=== PATIENT | male | born 1975 | race Caucasian/White ===

== ENCOUNTER 2016-08-11 07:27 | Emergency (ER) | payer BC, OTHER ==
[~2016-08-11] VITALS: Ht 180.3 cm; Wt 77.1 kg
[2016-08-11 07:30] VITALS: TEMP 36.4; Ht 180.3 cm; Wt 77.1 kg
[2016-08-11] MEDS ORDERED: SODIUM CHLORIDE 0.9% 1000ML 1,000 ML IV STA (07:34)
[2016-08-11] MEDS ORDERED: KETOROLAC TROMETHAMINE 30 MG/ML VIAL IV STA (07:34)
[2016-08-11] MEDS ORDERED: ONDANSETRON INJ 2 MG/ML 2 ML VIAL IV STA (07:34)
[2016-08-11] MEDS ORDERED: FLUO10CA15 PO (07:47)
[2016-08-11] MEDS ORDERED: CLON0.5T3 PO (07:47)
[2016-08-11 08:03] LABS: BASO % 0.3 %; BASO ABS # 0.02 K/uL (0-0.2); COMPLETE YES; EOS % 3.2 %; HEMATOCRIT 43.7 % (42-52); IG% 0.3 %; LYMPH % 31.5 %; MEAN CELL VOLUME 95.4 fL (80-100); MEAN CORPUSCULAR HEMOGLOBIN 32.5 pg (25-34); MEAN CORPUSCULAR HGB CONC 34.1 g/dl (32-36); MEAN PLATELET VOLUME 10.3 fL (7.4-10.4); NEUT % 56.7 %; PLATELET COUNT 212 K/uL (130-400); RED BLOOD COUNT 4.58 M/uL (4.7-6.1); WHITE BLOOD COUNT 6.03 K/uL (4.8-10.8)
[2016-08-11 08:25] LABS: ALKALINE PHOSPHATASE 82 U/L (45-117); ALT/SGPT 40 U/L (12-78); AST/SGOT 29 U/L (15-37); BLOOD UREA NITROGEN 18 mg/dl (7-18); BUN/CREATININE RATIO 16.4 (10-20); CALCIUM 9.3 mg/dl (8.5-10.1); CARBON DIOXIDE 25 mmol/L (21-32); CHLORIDE 111 mmol/L (98-107); GLUCOSE 105 mg/dl (70-99); POTASSIUM 4.1 mmol/L (3.5-5.1); SODIUM 143 mmol/L (136-145)
[2016-08-11] MEDS ORDERED: PROM25TA9 PO (08:49)
[2016-08-11 09:55] VITALS: BP 136/83; PULSE 52; O2SAT 99
--- NOTE | 2016-08-11 16:03 | EMERGENCY ROOM VISIT NOTE ---
History First contact with patient: 07:32 Chief Complaint: DIARRHEA Stated Complaint: DIARRHEA Nursing Triage Summary: pt here with n/v/d x 2 days. pt states able to eat in morning but sx get worse throughout day. denies any med hx History of Present Illness The patient is a 41 year old male who presents to the Emergency Room with complaints of nausea, vomiting and diarrhea for the past 2 days. The patient reports that his symptoms are worse in the morning, and improves throughout the day. He is able to eat over the evening without any significant discomfort. The patient reports that he ate at [employer] 2 days ago, and had symptoms within a few hours after eating. He reports that the diarrhea is green and watery in consistency with some solids. He reports that the vomit looks the same. He denies any blood in the vomitus or diarrhea. The patient also reports feeling dehydrated. 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 He has had a headache, dry skin overall feeling weak. He denies any recent foreign travel or drinking from contaminated water sources. He rates his overall discomfort a 6 out of 10. He denies any known sick contacts. Review of Systems HEENT: Denies visual problems, hearing loss, tinnitus. Denies difficulty swallowing or oral lesions. PULMONARY: Denies cough, shortness of breath, sputum production or hemoptysis. CARDIOVASCULAR: Denies chest pain, palpitations, dyspnea on exertion, orthopnea or peripheral edema. GASTROINTESTINAL: See history of present illness. GENITOURINARY: Denies dysuria, frequency, urgency or nocturia. NEUROLOGIC: Denies history of epilepsy, CVA, TIA or chronic headaches. MUSCULOSKELETAL: Denies history of joint tenderness/swelling. SKIN: Denies rashes or lesions. PSYCHIATRIC: Denies history of depression or mental illness. ENDOCRINE: Denies history of diabetes or thyroid disorders. Past Medical/Surgical History Medical Problems: (1) Abdominal pain Surgical Problems: (1) History of ankle surgery Family History No pertinent family history Social History Smoking Status: Current Every Day Smoker Alcohol Use: occasionally Marital Status: single, in relationship Housing Status: lives with family Occupation Status: employed Current/Historical Medications Scheduled Clonazepam (Klonopin), 0.5 MG PO TID Scheduled PRN Fluoxetine Hcl (Pmdd) (Prozac), Unknown Dose PO DAILY PRN for . Promethazine Hcl (Phenergan), 25 MG PO Q6H PRN for Nausea Allergies Coded Allergies: Codeine (Unverified Allergy, Unknown, NA, 08/11/16) Physical Exam Vital Signs Date Time Temp Pulse Resp B/P (MAP) Pulse Ox O2 Delivery O2 Flow Rate FiO2 08/11/16 09:55 52 16 136/83 99 08/11/16 07:30 36.4 62 20 119/75 99 Room Air Physical Exam CONSTITUTIONAL: Healthy and well nourished. Alert and oriented X 3 with positive affect. Does not appear in any acute distress, nor does he appear acutely or toxic. HEENT: Normocephalic, atraumatic. Pupils equal, round and reactive. Nares are clear. Sclerae icterus or conjunctival injection. OROPHARYNX: Mucous membranes are dry. No tonsillar hypertrophy or exudates. NECK: Full active range of motion without discomfort. RESPIRATORY: Clear to auscultation bilaterally with no wheezing, crackles, rhonchi or stridor. CARDIOVASCULAR: Regular rate and rhythm with no murmurs, rubs or gallops. GASTROINTESTINAL: Bowel sounds present in all quadrants. Patient has no focal findings, but does have mild generalized discomfort to palpation. No hepatosplenomegaly. McBurney's point tenderness, Rovsing sign, heeltap or psoas /obturator sign. Negative CVA tenderness. MUSCULOSKELETAL: Full range of motion of all joints without discomfort. INTEGUMENTARY: No rash or other significant dermatologic conditions noted. HEMATOLOGIC: No ecchymosis or petechiae. NEUROLOGIC: No focal neurologic deficits noted. Medical Decision & Procedures Laboratory Results 08/11/16 07:50 Red Blood Count 4.58, Mean Corpuscular Volume 95.4, Mean Corpuscular Hemoglobin 32.5, Mean Corpuscular Hemoglobin Concent 34.1, Mean Platelet Volume 10.3, Neutrophils (%) (Auto) 56.7, Lymphocytes (%) (Auto) 31.5, Monocytes (%) (Auto) 8.0, Eosinophils (%) (Auto) 3.2, Basophils (%) (Auto) 0.3, Neutrophils # (Auto) 3.42, Lymphocytes # (Auto) 1.90, Monocytes # (Auto) 0.48, Eosinophils # (Auto) 0.19, Basophils # (Auto) 0.02 08/11/16 07:50 Test 08/11/16 07:50 White Blood Count 6.03 K/uL (4.8-10.8) Red Blood Count 4.58 M/uL (4.7-6.1) Hemoglobin 14.9 g/dL (14.0-18.0) Hematocrit 43.7 % (42-52) Mean Corpuscular Volume 95.4 fL (80-100) Mean Corpuscular Hemoglobin 32.5 pg (25-34) Mean Corpuscular Hemoglobin Concent 34.1 g/dl (32-36) Platelet Count 212 K/uL (130-400) Mean Platelet Volume 10.3 fL (7.4-10.4) Neutrophils (%) (Auto) 56.7 % Lymphocytes (%) (Auto) 31.5 % Monocytes (%) (Auto) 8.0 % Eosinophils (%) (Auto) 3.2 % Basophils (%) (Auto) 0.3 % Neutrophils # (Auto) 3.42 K/uL (1.4-6.5) Lymphocytes # (Auto) 1.90 K/uL (1.2-3.4) Monocytes # (Auto) 0.48 K/uL (0.11-0.59) Eosinophils # (Auto) 0.19 K/uL (0-0.5) Basophils # (Auto) 0.02 K/uL (0-0.2) RDW Standard Deviation 43.8 fL (36.4-46.3) RDW Coefficient of Variation 12.6 % (11.5-14.5) Immature Granulocyte % (Auto) 0.3 % Immature Granulocyte # (Auto) 0.02 K/uL (0.00-0.02) Anion Gap 7.0 mmol/L (3-11) Est Creatinine Clear Calc Drug Dose 95.0 ml/min Estimated GFR () 96.8 Estimated GFR (Non- 83.5 BUN/Creatinine Ratio 16.4 (10-20) Calcium Level 9.3 mg/dl (8.5-10.1) Total Bilirubin 0.3 mg/dl (0.2-1) Direct Bilirubin mg/dl (0-0.2) Aspartate Amino Transf (AST/SGOT) 29 U/L (15-37) Alanine Aminotransferase (ALT/SGPT) 40 U/L (12-78) Alkaline Phosphatase 82 U/L (45-117) Total Creatine Kinase 149 U/L (39-308) Total Protein 7.4 gm/dl (6.4-8.2) Albumin 3.9 gm/dl (3.4-5.0) Lipase 279 U/L (73-393) Chemistry Specimen Hemolysis The above labs were reviewed and were grossly normal. Medications Administered Medications (Trade) Dose Ordered Sig/Darlene Route Start Time Stop Time Status Last Admin Dose Admin Ketorolac Tromethamine (Toradol Inj) 30 mg NOW STAT IV 08/11/16 07:34 08/11/16 07:37 DC 08/11/16 07:53 30 MG Sodium Chloride 1,000 ml @ 999 mls/hr Q1H1M STAT IV 08/11/16 07:34 08/11/16 08:41 DC 08/11/16 07:52 999 MLS/HR Ondansetron HCl (Zofran Inj) 4 mg NOW STAT IV 08/11/16 07:34 08/11/16 07:37 DC 08/11/16 07:53 4 MG Procedure 1. IV hydration: The patient received a liter normal saline bolus 2. IV medications: Zofran 4 mg and Toradol 30 mg IVP ED Course Patient history and physical exam were performed. Nurse's notes were reviewed. Vital signs were reviewed and were normal. IV access was established, and labs were drawn. The patient was hydrated with normal saline, and received IV medications as discussed in the previous Procedure section. Review of labs shows no significant findings. The patient did report feeling better after receiving IV hydration, Zofran and Toradol, and requested discharge home. The patient was encouraged to continue remaining well-hydrated. He was provided a prescription for Phenergan to prevent vomiting. Tylenol as needed for pain. Low provided as needed for diarrhea. He was instructed to follow-up with his family doctor if symptoms are not improving within the next few days. He is welcome to return to the emergency department for any progressively worsening symptoms. The patient was happy with plan of care, and voiced understanding of all discharge instructions. Medical Decision Clinical exam is most consistent with a gastroenteritis, likely viral. I do not suspect food poisoning. The patient does not have any other laboratory studies of concern, including pancreatitis, hepatitis, cholecystitis or overwhelming infection. He has no leukocytosis or fever. His clinical exam is otherwise benign. Impression Primary Impression: Gastroenteritis Departure Information Prescriptions Promethazine Hcl (Phenergan) 25 Mg Tab 25 MG PO Q6H Y for Nausea, #15 TAB Prov: Fede Chance PA 08/11/16 Referrals Jin Biggs M.D. (PCP) Patient Instructions My [facility]
== END 2016-08-11 09:55 | disposition home or self-care (01) ==
LOC: C.EDB 07:29
DX: K52.9 Noninfective gastroenteritis and colitis, unspecified (principal); F17.200 Nicotine dependence, unspecified, uncomplicated

== ENCOUNTER 2016-08-28 09:50 | Emergency (ER) | payer OTHER ==
[~2016-08-28] VITALS: Ht 180.3 cm; Wt 74.5 kg
[~2016-08-28 09:50] MED LIST: CLON0.5T3 PO; FLUO10CA15 PO; PROM25TA9 PO
[2016-08-28 10:01] VITALS: TEMP 36.7; Ht 180.3 cm; Wt 74.5 kg
[2016-08-28] MEDS ORDERED: RANI150T3 PO (10:12)
[2016-08-28] MEDS ORDERED: SODIUM CHLORIDE 0.9% 1000ML 1,000 ML IV STA (10:24)
[2016-08-28] MEDS ORDERED: PANTOprazole INJ 80 MG in DEXTROSE 5% 100ML 100 ML IV SCH (10:30)
[2016-08-28 11:04] LABS: BASO % 0.2 %; BASO ABS # 0.01 K/uL (0-0.2); COMPLETE YES; EOS % 2.3 %; HEMATOCRIT 42.3 % (42-52); IG% 0.2 %; LYMPH % 26.2 %; LYMPH ABS # 1.59 K/uL (1.2-3.4); MEAN CELL VOLUME 95.1 fL (80-100); MEAN CORPUSCULAR HEMOGLOBIN 31.7 pg (25-34); MEAN CORPUSCULAR HGB CONC 33.3 g/dl (32-36); MEAN PLATELET VOLUME 9.9 fL (7.4-10.4); MONO % 7.4 %; NEUT % 63.7 %; PLATELET COUNT 201 K/uL (130-400); RED BLOOD COUNT 4.45 M/uL (4.7-6.1); WHITE BLOOD COUNT 6.06 K/uL (4.8-10.8)
--- NOTE | 2016-08-28 11:15 | DIAGNOSTIC IMAGING REPORT ---
CHEST 2 VIEWS ROUTINE CLINICAL HISTORY: vomiting blood dyspnea COMPARISON STUDY: No previous studies for comparison. FINDINGS: Mild emphysematous change. No focal infiltrate. Diaphragms are smooth. IMPRESSION: Mild emphysematous change. No acute process. The above report was generated using voice recognition software. It may contain grammatical, syntax or spelling errors. Electronically signed by: Zana Carter M.D. 08/28/2016 11:13 AM Dictated Date/Time: 08/28/2016 11:13 AM
[2016-08-28 11:22] LABS: ALT/SGPT 26 U/L (12-78); BLOOD UREA NITROGEN 18 mg/dl (7-18); BUN/CREATININE RATIO 17.5 (10-20); CARBON DIOXIDE 28 mmol/L (21-32); CHLORIDE 110 mmol/L (98-107); GLUCOSE 92 mg/dl (70-99); POTASSIUM 4.3 mmol/L (3.5-5.1); SODIUM 142 mmol/L (136-145)
[2016-08-28 11:25] LABS: ALKALINE PHOSPHATASE 67 U/L (45-117); AST/SGOT 15 U/L (15-37)
[2016-08-28] MEDS ORDERED: ONDA4TAB10 SL (13:53)
[2016-08-28] MEDS ORDERED: PANT40TA PO (13:53)
--- NOTE | 2016-08-28 13:53 | EMERGENCY ROOM VISIT NOTE ---
History First contact with patient: 10:12 Chief Complaint: VOMITING Stated Complaint: VOMITING BLOOD Nursing Triage Summary: triage note; pt reports "i threw up blood this morning and my stomach feels upset." History of Present Illness The patient is a 41 year old male who presents to the Emergency Room with complaints of vomiting blood this morning. He states he has been having nausea for the past 2-3 weeks, and started having vomiting this week, 2-3 times as day. Today was the first time that he had blood in his vomit, he reports 3 episodes of vomiting with bright red and dark red emesis. He denies eating anything red recently. He denies history of vomiting blood. He has been having loose stools, but states this is normal for him, and denies any bloody, maroon, or black colored stools. He also states feeling generally tired the past few days, with subjective fevers/chills. He denies any chest pain, shortness of breath, abdominal pain, urinary symptoms. Review of Systems A complete 10 point review of systems was reviewed with the patient with pertinent positives and negatives as per history of present illness. All else were negative. Past Medical/Surgical History Medical Problems: (1) Abdominal pain Surgical Problems: (1) History of ankle surgery Family History No pertinent family history Social History Smoking Status: Current Every Day Smoker Alcohol Use: occasionally Marital Status: single, in relationship Housing Status: lives with family Occupation Status: employed Current/Historical Medications Scheduled Clonazepam (Klonopin), 0.5 MG PO TID Ondasetron Odt (Zofran Odt), 4 MG SL Q6H Pantoprazole (Protonix), 40 MG PO DAILY Ranitidine Hcl (Zantac), 150 MG PO DAILY Scheduled PRN Promethazine Hcl (Phenergan), 25 MG PO Q6H PRN for Nausea Allergies Coded Allergies: Codeine (Unverified Allergy, Unknown, NA, 08/11/16) Physical Exam Vital Signs Date Time Temp Pulse Resp B/P (MAP) Pulse Ox O2 Delivery O2 Flow Rate FiO2 08/28/16 14:04 74 16 128/72 100 08/28/16 11:31 50 16 129/73 100 Room Air 08/28/16 10:01 36.7 68 18 113/82 96 Room Air Physical Exam CONSTITUTIONAL: No acute distress. Not pale. Well appearing and well nourished. Alert and oriented X 4 with normal affect. HEENT: Normocephalic, atraumatic. Pupils equal, round and reactive to light, EOMI. TMs normal. Pharynx normal. Moist membranes. NECK: Supple, full active range of motion without discomfort. RESPIRATORY: Clear to auscultation bilaterally with no wheezing, crackles, rhonchi or stridor. Equal expansion bilaterally. CARDIOVASCULAR: Regular rate and rhythm with no murmurs, rubs or gallops. Normal peripheral perfusion. No edema. GASTROINTESTINAL: Soft, nontender, nondistended. Bowel sounds present in all quadrants. MUSCULOSKELETAL: Full range of motion of all joints without discomfort. INTEGUMENTARY: No rash or other significant dermatologic conditions noted. NEUROLOGIC: Cranial nerves II-XII grossly intact. No focal neurologic deficits noted. Medical Decision & Procedures ER Provider Diagnostic Interpretation: [~ rep ct add3]] CHEST 2 VIEWS ROUTINE CLINICAL HISTORY: vomiting blood dyspnea COMPARISON STUDY: No previous studies for comparison. FINDINGS: Mild emphysematous change. No focal infiltrate. Diaphragms are smooth. IMPRESSION: Mild emphysematous change. No acute process. Laboratory Results 08/28/16 10:42 Red Blood Count 4.45, Mean Corpuscular Volume 95.1, Mean Corpuscular Hemoglobin 31.7, Mean Corpuscular Hemoglobin Concent 33.3, Mean Platelet Volume 9.9, Neutrophils (%) (Auto) 63.7, Lymphocytes (%) (Auto) 26.2, Monocytes (%) (Auto) 7.4, Eosinophils (%) (Auto) 2.3, Basophils (%) (Auto) 0.2, Neutrophils # (Auto) 3.86, Lymphocytes # (Auto) 1.59, Monocytes # (Auto) 0.45, Eosinophils # (Auto) 0.14, Basophils # (Auto) 0.01 08/28/16 10:42 Test 08/28/16 10:42 White Blood Count 6.06 K/uL (4.8-10.8) Red Blood Count 4.45 M/uL (4.7-6.1) Hemoglobin 14.1 g/dL (14.0-18.0) Hematocrit 42.3 % (42-52) Mean Corpuscular Volume 95.1 fL (80-100) Mean Corpuscular Hemoglobin 31.7 pg (25-34) Mean Corpuscular Hemoglobin Concent 33.3 g/dl (32-36) Platelet Count 201 K/uL (130-400) Mean Platelet Volume 9.9 fL (7.4-10.4) Neutrophils (%) (Auto) 63.7 % Lymphocytes (%) (Auto) 26.2 % Monocytes (%) (Auto) 7.4 % Eosinophils (%) (Auto) 2.3 % Basophils (%) (Auto) 0.2 % Neutrophils # (Auto) 3.86 K/uL (1.4-6.5) Lymphocytes # (Auto) 1.59 K/uL (1.2-3.4) Monocytes # (Auto) 0.45 K/uL (0.11-0.59) Eosinophils # (Auto) 0.14 K/uL (0-0.5) Basophils # (Auto) 0.01 K/uL (0-0.2) RDW Standard Deviation 43.7 fL (36.4-46.3) RDW Coefficient of Variation 12.6 % (11.5-14.5) Immature Granulocyte % (Auto) 0.2 % Immature Granulocyte # (Auto) 0.01 K/uL (0.00-0.02) Anion Gap 4.0 mmol/L (3-11) Est Creatinine Clear Calc Drug Dose 103.5 ml/min Estimated GFR () 108.6 Estimated GFR (Non- 93.7 BUN/Creatinine Ratio 17.5 (10-20) Calcium Level 9.0 mg/dl (8.5-10.1) Total Bilirubin 0.3 mg/dl (0.2-1) Direct Bilirubin < 0.1 mg/dl (0-0.2) Aspartate Amino Transf (AST/SGOT) 15 U/L (15-37) Alanine Aminotransferase (ALT/SGPT) 26 U/L (12-78) Alkaline Phosphatase 67 U/L (45-117) Total Protein 6.9 gm/dl (6.4-8.2) Albumin 3.9 gm/dl (3.4-5.0) Lipase 229 U/L (73-393) Medications Administered Medications (Trade) Dose Ordered Sig/Darlene Route Start Time Stop Time Status Last Admin Dose Admin Sodium Chloride 1,000 ml @ 999 mls/hr Q1H1M STAT IV 08/28/16 10:24 08/28/16 11:24 DC 08/28/16 10:49 999 MLS/HR Pantoprazole Sodium 80 mg/ Dextrose 120 ml @ 400 mls/hr NOW IV 08/28/16 10:30 08/28/16 14:29 DC 08/28/16 12:11 400 MLS/HR ECG Indication: vomiting Rate (beats per minute): 50 Rhythm: sinus bradycardia Findings: no acute ischemic change, no ectopy Comparison ECG Date: no prior available Medical Decision CC: Patient presenting with complaint of vomiting blood Interpretation of Labs: No leukocytosis, not anemic, no significant electrolyte abnormalities, normal renal function, normal liver enzymes and lipase. Differential Diagnosis: Includes, but not limited to gastritis, peptic ulcer disease, gastroenteritis, esophageal varices, Shannon-Sprague tear, upper GI bleed , when others. Medication Reconciliation: I attest that I have personally reviewed the patient' s current medication list. Vital signs review: I reviewed the patient's vital signs and interpret them as follows: T: Afebrile; BP: Normotensive; HR: Within normal limits; RR: Within normal limits; Pulse Ox: Within normal limits on room air. Blood pressure screening: The patient was found to have normal blood pressure on screening and does not require follow-up for repeat blood pressure check. Summary: Patient was evaluated at bedside, history of physical exam performed. Patient is alert and in no acute distress. He does not appear clinically anemic on exam. No active bleeding in the ED, unable to confirm hematemesis. However, given the story of possible vomiting of blood, will evaluate for this. Labs, UA, IV fluids, IV Protonix given. EKG and chest x-ray are unremarkable. Labs reviewed, unremarkable as above. Not anemic. Patient discussed with Dr. Uribe, who agrees with my assessment and plan. Patient reassessed multiple times throughout ED stay, he remains well appearing and with no complaints. Will start patient on Protonix, vitamin with additional anti-nausea medication, and referral to GI for follow-up. Patient was informed of all results and plan for discharge and follow-up, he verbalized understanding. Patient was discharged home in stable condition and ambulatory. Impression Primary Impression: Vomiting Departure Information Dispostion Home / Self-Care Condition GOOD Prescriptions Ondasetron Odt (ZOFRAN ODT) 4 Mg Tab 4 MG SL Q6H for Nausea for 3 Days, #12 TAB Prov: Holly Lima CRNP 08/28/16 Pantoprazole (Protonix) 40 Mg Tab 40 MG PO DAILY for 30 Days, #30 TAB Prov: Holly Lima CRNP 08/28/16 Referrals Thien Aguirre III, M.D. (PCP) Harvey Lehman M.D. Patient Instructions ED Bleed UGI Stable, ED Nausea Vomiting, My [facility] Additional Instructions Protonix 1 tablet daily to help protect her stomach. Zofran 1 tablet every 6-8 hours as needed for severe nausea or vomiting. Drink plenty of fluids to stay well hydrated. Follow-up with gastroenterology within the next week to discuss having an endoscopy procedure to further evaluate your nausea and vomiting of blood. Call for appt. Follow-up with your own PCP as needed. Please return to the ER immediately for worsening symptoms including severe chest pain, trouble breathing, severe dizziness or passing out, persistently vomiting bright red blood, fevers above 101, or any other concerns. Problem Qualifiers Primary Impression: Vomiting Vomiting type: hematemesis Nausea presence: with nausea Qualified Codes: K92.0 - Hematemesis; R11.0 - Nausea
--- NOTE | 2016-08-28 13:53 | EMERGENCY ROOM VISIT NOTE ---
ED Visit Note First contact with patient: 10:12 The patient was seen and examined with Holly Lima NP. I agree with the history, physical and findings. Please see the note for disposition and details. The patient is a benign abdomen. He is doing well. His blood work looks excellent. We discussed conservative management. The patient will be referred to gastroenterology. Antinausea medication will be prescribed. If he worsens in any way he will be back. I gave my usual and customary discussion regarding this issue.
[2016-08-28 14:04] VITALS: BP 128/72; PULSE 74; O2SAT 100
== END 2016-08-28 14:05 | disposition home or self-care (01) ==
LOC: C.EDB 09:53 → C.EDA 14:05
DX: K92.0 Hematemesis (principal); F17.200 Nicotine dependence, unspecified, uncomplicated; Z98.890 Other specified postprocedural states

== ENCOUNTER 2016-09-02 17:29 | Observation (INO) | payer OTHER ==
[~2016-09-02] VITALS: Ht 180.3 cm; Wt 75.5 kg
[~2016-09-02 17:29] MED LIST changes: -FLUO10CA15 PO; +PANT40TA PO; +RANI150T3 PO
[2016-09-02 18:16] LABS: HEMATOCRIT 39.8 % (42-52); MEAN CORPUSCULAR HEMOGLOBIN 32.7 pg (25-34); MEAN CORPUSCULAR HGB CONC 34.4 g/dl (32-36); MEAN PLATELET VOLUME 10.4 fL (7.4-10.4); PLATELET COUNT 181 K/uL (130-400); RED BLOOD COUNT 4.19 M/uL (4.7-6.1); WHITE BLOOD COUNT 5.82 K/uL (4.8-10.8)
[2016-09-02 18:34] LABS: ALT/SGPT 26 U/L (12-78); AST/SGOT 19 U/L (15-37); BLOOD UREA NITROGEN 12 mg/dl (7-18); BUN/CREATININE RATIO 12.7 (10-20); CALCIUM 8.7 mg/dl (8.5-10.1); CARBON DIOXIDE 26 mmol/L (21-32); CHLORIDE 115 mmol/L (98-107); CREATININE 0.97 mg/dl (0.60-1.40); GLUCOSE 95 mg/dl (70-99); POTASSIUM 3.6 mmol/L (3.5-5.1); SODIUM 148 mmol/L (136-145)
[2016-09-02 18:45] LABS: ALKALINE PHOSPHATASE 69 U/L (45-117)
[2016-09-02 19:13] LABS: ACETAMINOPHEN < 2 ug/ml (10-30)
[2016-09-02 19:40] LABS: BENZODIAZEPINE, URINE POS (NEG); COCAINE,URINE NEG (NEG); PHENCYCLIDINE, URINE NEG (NEG)
[2016-09-02] MEDS ORDERED: MULTI-VITAMIN INFUSION INJ 10 ML, THIAMINE HCL INJ 100 MG, FoLIC ACID INJ 1 MG, POTASSI... IV ONE ×5 (20:30)
[2016-09-02 20:46] LABS: MAGNESIUM 2.1 mg/dl (1.8-2.4)
[2016-09-02] MEDS ORDERED: IV FLUIDS COMPLETED PRN (21:15)
[2016-09-02] MEDS ORDERED: ACETAMINOPHEN 325 MG TAB PO PRN (21:45)
[2016-09-02] MEDS ORDERED: ONDANSETRON INJ 2 MG/ML 2 ML VIAL IV PRN (21:45)
--- NOTE | 2016-09-02 22:06 | History and Physical ---
History & Physical Date & Time of Service: Sep 02, 2016 at 22:06 Chief Complaint: Overdose Primary Care Physician: Thien Aguirre III, M.D. History of Present Illness Source: patient, parent, clinic records, hospital records Recent ER visit a few days ago for hematemesis. Hemoglobin stable. Patient discharged home on Protonix prescription. No GI bleed in the subsequent days. Outpatient GI evaluation contemplated. The last few weeks patient mood hasn't been well as per patient and family. Unquantified weight loss because of poor appetite. Seen recently by a local psychiatrist. Prescribed Klonopin. Last night, patient claims he took about 6 Klonopin tablets and alcohol because he wanted to sleep without success. Today he took about 8 Klonopin tablets and alcohol to be able to sleep. Patient denies intent to harm himself. Patient girlfriend notified patient's mother. EMS alerted. At the emergency room, patient denies chest pain shortness of breath. Little sleepy as per ER physician. 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 Physical Exam Vital Signs Date Time Temp Pulse Resp B/P (MAP) Pulse Ox O2 Delivery O2 Flow Rate FiO2 09/02/16 21:29 61 17 96 09/02/16 21:00 107/67 09/02/16 20:59 62 14 97 09/02/16 20:29 65 19 94 09/02/16 20:00 66 18 113/63 94 09/02/16 20:00 113/63 09/02/16 19:59 65 20 94 09/02/16 19:29 66 20 93 09/02/16 19:00 109/58 09/02/16 18:59 62 19 92 09/02/16 18:29 63 18 09/02/16 18:09 104/47 09/02/16 17:59 69 23 91 09/02/16 17:47 Room Air 09/02/16 17:47 70 09/02/16 17:42 36.7 69 22 106/76 92 Room Air 09/02/16 17:32 106/76 General Appearance: + pertinent finding (depressed, occasionally yawning) Head: normocephalic Eyes: + pertinent finding (pale palpebral conjunctivae, dry mucosa) Neck: supple Respiratory/Chest: + decreased breath sounds Cardiovascular: regular rate, rhythm Abdomen/GI: soft Extremities/Musculoskelatal: non-tender Neurologic/Psych: alert, + pertinent finding (coherent) Skin: + pallor Diagnostics Laboratory Results Results Past 24 Hours Test 09/02/16 17:46 09/02/16 18:30 Range/Units White Blood Count 5.82 4.8-10.8 K/uL Red Blood Count 4.19 4.7-6.1 M/uL Hemoglobin 13.7 14.0-18.0 g/dL Hematocrit 39.8 42-52 % Mean Corpuscular Volume 95.0 80-100 fL Mean Corpuscular Hemoglobin 32.7 25-34 pg Mean Corpuscular Hemoglobin Concent 34.4 32-36 g/dl RDW Standard Deviation 44.3 36.4-46.3 fL RDW Coefficient of Variation 12.8 11.5-14.5 % Platelet Count 181 130-400 K/uL Mean Platelet Volume 10.4 7.4-10.4 fL Sodium Level 148 136-145 mmol/L Potassium Level 3.6 3.5-5.1 mmol/L Chloride Level 115 98-107 mmol/L Carbon Dioxide Level 26 21-32 mmol/L Anion Gap 7.0 3-11 mmol/L Blood Urea Nitrogen 12 7-18 mg/dl Creatinine 0.97 0.60-1.40 mg/dl Estimated GFR () 112.7 Estimated GFR (Non- 97.3 BUN/Creatinine Ratio 12.7 10-20 Random Glucose 95 70-99 mg/dl Calcium Level 8.7 8.5-10.1 mg/dl Magnesium Level 2.1 1.8-2.4 mg/dl Total Bilirubin 0.2 0.2-1 mg/dl Direct Bilirubin < 0.1 0-0.2 mg/dl Aspartate Amino Transf (AST/SGOT) 19 15-37 U/L Alanine Aminotransferase (ALT/SGPT) 26 12-78 U/L Alkaline Phosphatase 69 45-117 U/L Total Protein 6.9 6.4-8.2 gm/dl Albumin 3.8 3.4-5.0 gm/dl Thyroid Stimulating Hormone (TSH) 1.360 0.300-4.500 uIu/ml Salicylates Level 3.5 2.8-20 mg/dl Acetaminophen Level < 2 10-30 ug/ml Ethyl Alcohol mg/dL 105.0 0-3 mg/dl Urine Opiates Screen NEG NEG Urine Methadone, Qualitative NEG NEG Urine Barbiturates NEG NEG Urine Phencyclidine (PCP) Level NEG NEG Ur Amphetamine/Methamphetamine NEG NEG MDMA (Ecstasy) Screen NEG NEG Urine Benzodiazepines Screen POS NEG Urine Cocaine Metabolite NEG NEG Urine Marijuana (THC) POS NEG EKG As per my interpretation: Rate 70, NSR, no ischemia, QTC 400 Impression Assessment and Plan AP Benzo overdose Suboptimal depression Possible suicidality, although patient denies this Ongoing tobacco abuse Recent UGIB possibly from gastritis, resolved OBS GMF Suicide precautions for now Psych consult re: suboptimal depression possible suicidality Nicotine patch Outpatient [facility] GI eval contemplated as per patient's mother for GI bleed, family history IBD DVT prophylaxis SCDs recent UGIB Full code VTE Prophylaxis VTE Risk Assessment Done? Y/N: Yes Risk Level: Moderate
[2016-09-02 22:19] VITALS: O2SAT 96
[2016-09-02 22:54] VITALS: BP 111/66; PULSE 59; TEMP 36.9; O2SAT 97
[2016-09-02 22:55] VITALS: BP 111/66; PULSE 59; TEMP 36.9; Ht 180.3 cm; Wt 75.5 kg
--- NOTE | 2016-09-03 00:35 | EMERGENCY ROOM VISIT NOTE ---
History Report prepared by Ramon: Juana Hernandez Under the Supervision of: Dr. Mike Lechuga M.D. First contact with patient: 18:01 Chief Complaint: OVERDOSE (ACCIDENTAL) Stated Complaint: OVERDOSE Nursing Triage Summary: DEPRESSED, WORSE LAST TWO WEEKS History of Present Illness The patient is a 41 year old male who presents to the Emergency Room with complaints of an episode of an accidental overdose occurring today. The patient states that he is fine and that his girlfriend called the police to bring him here. He reports that he does not know why she called the police. He reports that he has been drinking today and has had 3-4 beers. He states that he took 10 Klonopin because he just wants to sleep. He reports that he has been severely anxious recently and took so many because they weren't working. The patient notes he is supposed to only take 3 a day as prescribed by his psychiatrist. The patient denies any suicidal ideation, homicidal ideation, fever, recent illness, and telling his girlfriend he tried to hurt himself. The mother reports that the patient had a 90 day prescription of Klonopin that was filled three days ago and that they are all gone. She states that he made statements to his girlfriend of wanting to give up and not be here anymore. She notes that he has had 7 beers today and took 15 Klonopin today. Source of History: patient, parent Onset: today Position: other (global) Symptom Intensity: severe Quality: other (global) Timing: other (episode) Associated Symptoms: No fevers Note: The patient denies suicidal ideation, homicidal ideation, recent illness, and telling his girlfriend he tried to hurt himself. Review of Systems See HPI for pertinent positives & negatives. A total of 10 systems reviewed and were otherwise negative. Past Medical & Surgical Medical Problems: (1) Abdominal pain (2) Drug overdose, intentional Surgical Problems: (1) History of ankle surgery Family History No pertinent family history Social History Smoking Status: Current Every Day Smoker Alcohol Use: occasionally Marital Status: single, in relationship Housing Status: lives with family Occupation Status: employed Current/Historical Medications Scheduled Clonazepam (Klonopin), 1 MG PO TID Pantoprazole (Protonix), 40 MG PO DAILY Ranitidine Hcl (Zantac), 150 MG PO DAILY Scheduled PRN Promethazine Hcl (Phenergan), 25 MG PO Q6H PRN for Nausea Allergies Coded Allergies: Codeine (Unverified Allergy, Unknown, NA, 09/02/16) Physical Exam Vital Signs Date Time Temp Pulse Resp B/P (MAP) Pulse Ox O2 Delivery O2 Flow Rate FiO2 09/02/16 21:00 107/67 09/02/16 20:59 62 14 97 09/02/16 20:29 65 19 94 09/02/16 20:00 66 18 113/63 94 09/02/16 20:00 113/63 09/02/16 19:59 65 20 94 09/02/16 19:29 66 20 93 09/02/16 19:00 109/58 09/02/16 18:59 62 19 92 09/02/16 18:29 63 18 09/02/16 18:09 104/47 09/02/16 17:59 69 23 91 09/02/16 17:47 Room Air 09/02/16 17:47 70 09/02/16 17:42 36.7 69 22 106/76 92 Room Air 09/02/16 17:32 106/76 Physical Exam Constitutional: Vital signs reviewed. Eyes: Pupils are equal round reactive to light. Conjunctiva are noninjected. ENT: Pharynx is clear without erythema or exudate. Mucous membranes are moist. Neck supple without meningeal signs. Respiratory: Clear to auscultation bilaterally. Breath sounds are equal bilaterally. Cardiovascular: Regular rate and rhythm. No rubs or gallops. GI: Soft, nondistended and nontender. Bowel sounds are present. Musculoskeletal: No peripheral edema. No lower extremity tenderness. Integumentary: No cyanosis. Neurological: The patient is slightly somnolent. No focal deficits. Psychiatric: Guarded affect. Medical Decision & Procedures Laboratory Results 09/02/16 17:46 09/02/16 17:46 Test 09/02/16 17:46 09/02/16 18:30 Red Blood Count 4.19 M/uL (4.7-6.1) Mean Corpuscular Volume 95.0 fL (80-100) Mean Corpuscular Hemoglobin 32.7 pg (25-34) Mean Corpuscular Hemoglobin Concent 34.4 g/dl (32-36) RDW Standard Deviation 44.3 fL (36.4-46.3) RDW Coefficient of Variation 12.8 % (11.5-14.5) Mean Platelet Volume 10.4 fL (7.4-10.4) Anion Gap 7.0 mmol/L (3-11) Estimated GFR () 112.7 Estimated GFR (Non- 97.3 BUN/Creatinine Ratio 12.7 (10-20) Calcium Level 8.7 mg/dl (8.5-10.1) Magnesium Level 2.1 mg/dl (1.8-2.4) Total Bilirubin 0.2 mg/dl (0.2-1) Direct Bilirubin < 0.1 mg/dl (0-0.2) Aspartate Amino Transf (AST/SGOT) 19 U/L (15-37) Alanine Aminotransferase (ALT/SGPT) 26 U/L (12-78) Alkaline Phosphatase 69 U/L (45-117) Total Protein 6.9 gm/dl (6.4-8.2) Albumin 3.8 gm/dl (3.4-5.0) Thyroid Stimulating Hormone (TSH) 1.360 uIu/ml (0.300-4.500) Salicylates Level 3.5 mg/dl (2.8-20) Acetaminophen Level < 2 ug/ml (10-30) Ethyl Alcohol mg/dL 105.0 mg/dl (0-3) Urine Opiates Screen NEG (NEG) Urine Methadone, Qualitative NEG (NEG) Urine Barbiturates NEG (NEG) Urine Phencyclidine (PCP) Level NEG (NEG) Ur Amphetamine/Methamphetamine NEG (NEG) MDMA (Ecstasy) Screen NEG (NEG) Urine Benzodiazepines Screen POS (NEG) Urine Cocaine Metabolite NEG (NEG) Urine Marijuana (THC) POS (NEG) Medications Administered Medications (Trade) Dose Ordered Sig/Darlene Route Start Time Stop Time Status Last Admin Dose Admin Multivitamins 10 ml/Thiamine HCl 100 mg/Folic Acid 1 mg/Potassium Chloride 20 meq/ Sodium Chloride 1,021.2 ml @ 75 mls/hr [id number] ONCE IV 09/02/16 20:30 09/03/16 10:06 09/02/16 21:02 75 MLS/HR ECG Indication: other (nursing protocol) Rate (beats per minute): 69 Rhythm: normal sinus Findings: no acute ischemic change, no ectopy ED Course 1802: The patient was evaluated in room A5. A complete history and physical exam was performed. 2217: The patient is somnolent and his vitals are stable. We will hospitalize him for his overdose. 2224: I spoke with Dr. Ramirez. We discussed the patient and test results. The patient will be further evaluated by Dr. Ramirez. Medical Decision This is a 41-year-old male brought to the emergency department by police for an overdose on Klonopin. I did perform a limited focused review of portions of the patient's old chart on the electronic medical record. The patient was seen here August 28 for vomiting blood. He was evaluated by the ED and discharged to follow up with GI on Protonix. Medication Reconciliation: I attest that I have personally reviewed the patient' s current medication list. Blood Pressure Screening: Patient was found to have normal blood pressure on screening and does not require follow-up. I did evaluate the patient as noted above. The patient is denying suicidal ideation and states that he only took the Klonopin to go to sleep. His mother states that the patient had made suicidal statements about not wanting to be around anymore and giving up. She reports that he took a 90 day prescription of Klonopin which is only filled on Tuesday. IV access was established. The patient was placed on a continuous monitoring manager. I did personally review the patient's 12-lead EKG as described above. I did review the patient's blood work as noted in the electronic medical record. I did reassess the patient. He is rather somnolent. He will be hospitalized for medical clearance due to the long-acting nature of Klonopin. I did discuss case with the hospitalist and case sealer. He will required psychiatric evaluation once medically cleared. Consults Time Called: [id number] Consulting Physician: Dr. Ramirez Returned Call: [phone] Ramirez. We discussed the patient and test results. The patient will be further evaluated by Dr. Ramirez. Impression Primary Impression: Benzodiazepine overdose Scribe Attestation The scribe's documentation has been prepared under my direct and personally reviewed by me in its entirety. I confirm that the note above accurately reflects all work, treatment, procedures, and medical decision making performed by me. Departure Information Dispostion Being Evaluated By Hospitalist Referrals Thien Aguirre III, M.D. (PCP) Patient Instructions My [facility] Problem Qualifiers Primary Impression: Benzodiazepine overdose Encounter type: initial encounter Injury intent: undetermined intent Qualified Codes: T42.4X4A - Poisoning by benzodiazepines, undetermined, initial encounter
[2016-09-03 06:32] LABS: BASO % 0.2 %; BASO ABS # 0.01 K/uL (0-0.2); COMPLETE YES; EOS % 4.1 %; HEMATOCRIT 41.6 % (42-52); IG% 0.2 %; LYMPH % 41.4 %; LYMPH ABS # 2.24 K/uL (1.2-3.4); MEAN CELL VOLUME 96.3 fL (80-100); MEAN CORPUSCULAR HEMOGLOBIN 31.9 pg (25-34); MEAN CORPUSCULAR HGB CONC 33.2 g/dl (32-36); MEAN PLATELET VOLUME 10.1 fL (7.4-10.4); MONO % 7.9 %; NEUT % 46.2 %; PLATELET COUNT 166 K/uL (130-400); RED BLOOD COUNT 4.32 M/uL (4.7-6.1); WHITE BLOOD COUNT 5.41 K/uL (4.8-10.8)
[2016-09-03 07:05] LABS: BUN/CREATININE RATIO 15.5 (10-20); CALCIUM 8.7 mg/dl (8.5-10.1); POTASSIUM 4.1 mmol/L (3.5-5.1)
[2016-09-03 07:10] VITALS: BP 98/64; PULSE 47; TEMP 36.3; O2SAT 97
[2016-09-03] MEDS ORDERED: RANITIDINE HCL 150 MG TAB PO SCH (08:00)
[2016-09-03] MEDS ORDERED: NICOTINE 14 MG/24 HR TDSY TD SCH (08:00)
[2016-09-03] MEDS ORDERED: PANTOprazole SOD 40 MG TAB PO SCH (08:00)
[2016-09-03] MEDS ORDERED: GABAPENTIN 800 MG TAB PO SCH (08:30)
[2016-09-03] MEDS ORDERED: LORAZEPAM 1 MG TAB PO PRN (08:30)
--- NOTE | 2016-09-03 14:51 | Progress Note ---
Subjective Date of Service: Sep 03, 2016. Subjective Pt evaluation today including: conversation w/ patient, physical exam, lab review, review of studies, review of inpatient medication list Saw/examined the patient in room 411 States he is not depressed or suicidal Tells me that he was prescribed 90 tablets of 1mg of Klonopin on 08/31 (verified on [place] Drug Monitoring) Tells me he took about 6-7 tablets - and he admits that he gave his girlfriend about 15-20 tablets but does not know where the rest of them went States he only took the medications to help him sleep No other issues currently - eager to get home Problem List Medical Problems: (1) Benzodiazepine overdose Status: Acute (2) Gastroenteritis Status: Acute (3) Vomiting Status: Acute Review of Systems Constitutional: No fever, No chills, No weakness Respiratory: No cough, No sputum, No wheezing, No shortness of breath, No dyspnea on exertion, No dyspnea at rest Cardiac: No chest pain Abdomen: No pain, No nausea, No vomiting, No diarrhea Psychiatric: + depression symptoms, + anxiety, + insomnia Medications Current Inpatient Medications Medications (Trade) Dose Ordered Sig/Darlene Route Start Time Stop Time Status Last Admin Dose Admin Miscellaneous (Iv Fluids Completed) 1 ea PRN PRN N/A 09/02/16 21:15 09/02/17 21:14 Acetaminophen (Tylenol Tab) 650 mg Q4H PRN PO 09/02/16 21:45 10/02/16 21:44 Ondansetron HCl (Zofran Inj) 4 mg Q6H PRN IV 09/02/16 21:45 10/02/16 21:44 Nicotine (Nicoderm Cq 14MG Patch) 1 patch QAM TD 09/03/16 08:00 10/03/16 08:59 Miscellaneous (Remove Nicoderm Patch) 1 ea HS N/A 09/03/16 21:00 10/03/16 20:59 Pantoprazole Sodium (Protonix Tab) 40 mg DAILY PO 09/03/16 08:00 10/03/16 08:59 09/03/16 08:39 40 MG Ranitidine HCl (zANTac TAB) 150 mg DAILY PO 09/03/16 08:00 10/03/16 08:59 09/03/16 08:39 150 MG Objective Vital Signs Date Time Temp Pulse Resp B/P (MAP) Pulse Ox O2 Delivery O2 Flow Rate FiO2 09/03/16 08:00 Room Air 09/03/16 07:10 36.3 47 20 98/64 (75) 97 Room Air 09/03/16 00:00 Room Air 09/02/16 22:55 36.9 59 18 111/66 09/02/16 22:54 36.9 59 18 111/66 (81) 97 Room Air 09/02/16 22:50 Room Air 09/02/16 22:19 36.7 64 16 108/70 96 Room Air 09/02/16 21:29 61 17 96 09/02/16 21:00 107/67 09/02/16 20:59 62 14 97 09/02/16 20:29 65 19 94 09/02/16 20:00 66 18 113/63 94 09/02/16 20:00 113/63 09/02/16 19:59 65 20 94 09/02/16 19:29 66 20 93 09/02/16 19:00 109/58 09/02/16 18:59 62 19 92 09/02/16 18:29 63 18 09/02/16 18:09 104/47 09/02/16 17:59 69 23 91 09/02/16 17:47 Room Air 09/02/16 17:47 70 09/02/16 17:42 36.7 69 22 106/76 92 Room Air 09/02/16 17:32 106/76 Physical Exam General Appearance: no apparent distress Respiratory/Chest: chest non-tender, lungs clear, normal breath sounds, no respiratory distress, no accessory muscle use Cardiovascular: regular rate, rhythm, no edema, no murmur Extremities: normal inspection, no pedal edema Neurologic/Psychiatric: + pertinent finding (reserved) Laboratory Results Last 24 Hours Test 09/02/16 17:46 09/02/16 18:30 09/03/16 06:19 White Blood Count 5.82 K/uL 5.41 K/uL Red Blood Count 4.19 M/uL 4.32 M/uL Hemoglobin 13.7 g/dL 13.8 g/dL Hematocrit 39.8 % 41.6 % Mean Corpuscular Volume 95.0 fL 96.3 fL Mean Corpuscular Hemoglobin 32.7 pg 31.9 pg Mean Corpuscular Hemoglobin Concent 34.4 g/dl 33.2 g/dl RDW Standard Deviation 44.3 fL 45.1 fL RDW Coefficient of Variation 12.8 % 12.8 % Platelet Count 181 K/uL 166 K/uL Mean Platelet Volume 10.4 fL 10.1 fL Sodium Level 148 mmol/L 143 mmol/L Potassium Level 3.6 mmol/L 4.1 mmol/L Chloride Level 115 mmol/L 112 mmol/L Carbon Dioxide Level 26 mmol/L 28 mmol/L Anion Gap 7.0 mmol/L 3.0 mmol/L Blood Urea Nitrogen 12 mg/dl 16 mg/dl Creatinine 0.97 mg/dl 1.00 mg/dl Estimated GFR () 112.7 108.6 Estimated GFR (Non- 97.3 93.7 BUN/Creatinine Ratio 12.7 15.5 Random Glucose 95 mg/dl 82 mg/dl Calcium Level 8.7 mg/dl 8.7 mg/dl Magnesium Level 2.1 mg/dl Total Bilirubin 0.2 mg/dl Direct Bilirubin < 0.1 mg/dl Aspartate Amino Transf (AST/SGOT) 19 U/L Alanine Aminotransferase (ALT/SGPT) 26 U/L Alkaline Phosphatase 69 U/L Total Protein 6.9 gm/dl Albumin 3.8 gm/dl Thyroid Stimulating Hormone (TSH) 1.360 uIu/ml Salicylates Level 3.5 mg/dl Acetaminophen Level < 2 ug/ml Ethyl Alcohol mg/dL 105.0 mg/dl Urine Opiates Screen NEG Urine Methadone, Qualitative NEG Urine Barbiturates NEG Urine Phencyclidine (PCP) Level NEG Ur Amphetamine/Methamphetamine NEG MDMA (Ecstasy) Screen NEG Urine Benzodiazepines Screen POS Urine Cocaine Metabolite NEG Urine Marijuana (THC) POS Neutrophils (%) (Auto) 46.2 % Lymphocytes (%) (Auto) 41.4 % Monocytes (%) (Auto) 7.9 % Eosinophils (%) (Auto) 4.1 % Basophils (%) (Auto) 0.2 % Neutrophils # (Auto) 2.50 K/uL Lymphocytes # (Auto) 2.24 K/uL Monocytes # (Auto) 0.43 K/uL Eosinophils # (Auto) 0.22 K/uL Basophils # (Auto) 0.01 K/uL Immature Granulocyte % (Auto) 0.2 % Immature Granulocyte # (Auto) 0.01 K/uL Est Creatinine Clear Calc Drug Dose 104.5 ml/min Assessment and Plan This is a 41 year old male with a PMH of recent gastritis and UGIB, depression/ anxiety, tobacco use disorder presents after overdosing on Klonopin Intentional Overdose in the setting of Depression and Anxiety with no suicidal ideation prescribed 90 tablets of Klonopin on 08/31 admits to taking 6-7 tablets, but does not have any more Klonopin at home appreciate psych liaison input will have release papers signed - communication with Dr. Larsen regarding this okay for discharge medically Recent GI Bleed continue Protonix and Zantac DVT ppx SCDs FULL CODE
--- NOTE | 2016-09-03 15:03 | Discharge Instructions ---
Discharge Instructions Date of Service Sep 03, 2016. Admission Reason for Admission: Drug Overdose, Intentional Discharge Discharge Diagnosis / Problem: Drug Overdose, Intentional; No Suicidality Discharge Goals Goal(s): Decrease discomfort, Improve function Activity Recommendations Activity Limitations: resume your previous activity . Instructions / Follow-Up Instructions / Follow-Up Please follow up with Dr. Aguirre on September 08 at 1:45PM Please discuss different options with Dr. Peña, psychiatry Current Hospital Diet Patient's current hospital diet: Regular Diet Discharge Diet Recommended Diet: Regular Diet Pending Studies Studies pending at discharge: no Medical Emergencies . Who to Call and When: Medical Emergencies: If at any time you feel your situation is an emergency, please call 911 immediately. . Non-Emergent Contact Non-Emergency issues call your: Primary Care Provider, Specialist (psychiatry) . . "Provider Documentation" section prepared by Carly Bello. . VTE Core Measure Inpt VTE Proph given/why not?: SCD's [place] Drug Monitoring Program Search Results: patient reviewed within database Drug Monitoring Findings: 30 day supply; #90 pills of 1mg Klonopin prescribed on 08/31
[2016-09-03 15:05] VITALS: BP 98/64; PULSE 47; TEMP 36.3; O2SAT 97
--- NOTE | 2016-09-03 15:06 | Discharge Summary ---
Discharge Summary Date of Service Sep 03, 2016. Discharge Summary Admission Date: Sep 02, 2016 at 21:18 Discharge Date: Sep 03, 2016 Discharge Disposition: Home Principal Diagnosis: Drug Overdose, Intentional Anxiety/Depression Medication Reconciliation Continued Medications: Pantoprazole (Protonix) 40 Mg Tab 40 MG PO DAILY for 30 Days, #30 TAB Promethazine Hcl (Phenergan) 25 Mg Tab 25 MG PO Q6H PRN for Nausea, #15 TAB Ranitidine Hcl (Zantac) 150 Mg Tab 150 MG PO DAILY, TAB Discontinued Medications: Clonazepam (Klonopin) 0.5 Mg Tab 1 MG PO TID, TAB Admission Information HPI (per Admitting provider): Recent ER visit a few days ago for hematemesis. Hemoglobin stable. Patient discharged home on Protonix prescription. No GI bleed in the subsequent days. Outpatient GI evaluation contemplated. The last few weeks patient mood hasn't been well as per patient and family. Unquantified weight loss because of poor appetite. Seen recently by a local psychiatrist. Prescribed Klonopin. Last night, patient claims he took about 6 Klonopin tablets and alcohol because he wanted to sleep without success. Today he took about 8 Klonopin tablets and alcohol to be able to sleep. Patient denies intent to harm himself. Patient girlfriend notified patient's mother. EMS alerted. At the emergency room, patient denies chest pain shortness of breath. Little sleepy as per ER physician. Physical Exam (per Admitting): General Appearance: + pertinent finding (depressed, occasionally yawning) Head: normocephalic Eyes: + pertinent finding (pale palpebral conjunctivae, dry mucosa) Neck: supple Respiratory/Chest: + decreased breath sounds Cardiovascular: regular rate, rhythm Abdomen/GI: soft Extremities/Musculoskelatal: non-tender Neurologic/Psych: alert, + pertinent finding (coherent) Skin: + pallor Hospital Course This is a 41 year old male with a PMH of recent gastritis and UGIB, depression/ anxiety, tobacco use disorder presents after overdosing on Klonopin Intentional Overdose in the setting of Depression and Anxiety with no suicidal ideation prescribed 90 tablets of Klonopin on 08/31 admits to taking 6-7 tablets, but does not have any more Klonopin at home appreciate psych liaison input will have release papers signed - communication with Dr. Larsen regarding this okay for discharge medically Recent GI Bleed continue Protonix and Zantac DVT ppx SCDs FULL CODE Total time spent on discharge = 20 minutes This includes examination of the patient, discharge planning, medication reconciliation, and communication with other providers. Discharge Instructions Please follow up with Dr. Aguirre on September 08 at 1:45PM Please discuss different options with Dr. Peña, psychiatry Additional Copies To Thien Aguirre III, M.D.
--- NOTE | 2016-09-03 15:28 | Psychiatric Consultation ---
Consultation Date of Consultation Sep 03, 2016. Identifying Data Mr. Feliciano is a 41 yo male who was seen today for depression, s/p substance ingestion (suspected Klonopin misuse). He resides in [place]. Chief Complaint "whatever will get me out of here". History of Present Illness Patient states that he took a few extra klonopin and drank (1-2 beers, previous report on chart more like 15 Klonopin and 7 beers). He stated that he just wanted to go to sleep, he wasn't trying to harm himself in any way. He admits he has been feeling down at times but "have a psychiatrist for that" referring to "Dr. Carter" which is likely a PA-C with Dr. Peña. He refused to allow his mother into the room after the assessment. She expressed concerns that he has been depressed for some time and feels stressors are his son not talking to him and his young daughter's birthday (age 5, hasn't seen for 2 years). Mother was contacted as patient denied a suicide attempt and denied need for substance abuse treatment. His frequency of panic attacks was not particularly clear and he admits to taking "extra" Klonopin at times if severe. He is aware that he should not combine benzos with ETOH. Past Psychiatric History Current OP Treatment: psychiatrist (Dr. Peña's office) Prior OP Treatment: no prior treatment Access to a Gun: No Suicide Attempts: No (per patient, mother believes several years ago.) Past Medical/Surgical History (1) History of ankle surgery Allergies Allergies: Coded Allergies: Codeine (Unverified Allergy, Unknown, NA, 09/02/16) Home Medications Scheduled Pantoprazole (Protonix), 40 MG PO DAILY Ranitidine Hcl (Zantac), 150 MG PO DAILY Scheduled PRN Promethazine Hcl (Phenergan), 25 MG PO Q6H PRN for Nausea Family History FH: inflammatory bowel disease No pertinent family history he states he is not sure of any family history of psych issues Alcohol Use Alcohol Use In Past 12 Months: Yes claims 1-2 beers several times a week, denies hx of rehab or withdrawal Smoking Use Smoking Status: Current Every Day Smoker Substance History denied other than MJ Personal History Education: graduated from high school Work History: [employer] Relationship History: other (has a girlfriend who he states he plans to break up with.) Children: teen son and young daughter, girlfriend as a child Legal History: none Psychological Trauma History: Denies Hx Traumatic Event Review of Systems Psych: denies symptoms other than stated above Constitutional: denied Cardiovascular: denied GI: denied Neurologic: denied Remainder of 10 body systems also reviewed and denied other than noted above. Examination Vital Signs Vital Signs Past 12 Hours Date Time Temp Pulse Resp B/P (MAP) Pulse Ox O2 Delivery O2 Flow Rate FiO2 09/03/16 08:00 Room Air 09/03/16 07:10 36.3 47 20 98/64 (75) 97 Room Air Laboratory Results Last 24 Hours Test 09/02/16 17:46 09/02/16 18:30 09/03/16 06:19 White Blood Count 5.82 K/uL 5.41 K/uL Red Blood Count 4.19 M/uL 4.32 M/uL Hemoglobin 13.7 g/dL 13.8 g/dL Hematocrit 39.8 % 41.6 % Mean Corpuscular Volume 95.0 fL 96.3 fL Mean Corpuscular Hemoglobin 32.7 pg 31.9 pg Mean Corpuscular Hemoglobin Concent 34.4 g/dl 33.2 g/dl RDW Standard Deviation 44.3 fL 45.1 fL RDW Coefficient of Variation 12.8 % 12.8 % Platelet Count 181 K/uL 166 K/uL Mean Platelet Volume 10.4 fL 10.1 fL Sodium Level 148 mmol/L 143 mmol/L Potassium Level 3.6 mmol/L 4.1 mmol/L Chloride Level 115 mmol/L 112 mmol/L Carbon Dioxide Level 26 mmol/L 28 mmol/L Anion Gap 7.0 mmol/L 3.0 mmol/L Blood Urea Nitrogen 12 mg/dl 16 mg/dl Creatinine 0.97 mg/dl 1.00 mg/dl Estimated GFR () 112.7 108.6 Estimated GFR (Non- 97.3 93.7 BUN/Creatinine Ratio 12.7 15.5 Random Glucose 95 mg/dl 82 mg/dl Calcium Level 8.7 mg/dl 8.7 mg/dl Magnesium Level 2.1 mg/dl Total Bilirubin 0.2 mg/dl Direct Bilirubin < 0.1 mg/dl Aspartate Amino Transf (AST/SGOT) 19 U/L Alanine Aminotransferase (ALT/SGPT) 26 U/L Alkaline Phosphatase 69 U/L Total Protein 6.9 gm/dl Albumin 3.8 gm/dl Thyroid Stimulating Hormone (TSH) 1.360 uIu/ml Salicylates Level 3.5 mg/dl Acetaminophen Level < 2 ug/ml Ethyl Alcohol mg/dL 105.0 mg/dl Urine Opiates Screen NEG Urine Methadone, Qualitative NEG Urine Barbiturates NEG Urine Phencyclidine (PCP) Level NEG Ur Amphetamine/Methamphetamine NEG MDMA (Ecstasy) Screen NEG Urine Benzodiazepines Screen POS Urine Cocaine Metabolite NEG Urine Marijuana (THC) POS Neutrophils (%) (Auto) 46.2 % Lymphocytes (%) (Auto) 41.4 % Monocytes (%) (Auto) 7.9 % Eosinophils (%) (Auto) 4.1 % Basophils (%) (Auto) 0.2 % Neutrophils # (Auto) 2.50 K/uL Lymphocytes # (Auto) 2.24 K/uL Monocytes # (Auto) 0.43 K/uL Eosinophils # (Auto) 0.22 K/uL Basophils # (Auto) 0.01 K/uL Immature Granulocyte % (Auto) 0.2 % Immature Granulocyte # (Auto) 0.01 K/uL Est Creatinine Clear Calc Drug Dose 104.5 ml/min Mental Examination During interview pt is: alert and oriented Appearance: appropriately groomed Eye contact is: poor Motor behavior is: no abnormal motor movements Speech: other (non-spontaneous) Affect: depressed Mood is: depressed Thought process: clear, coherent Thought content: reality based without delusions Suicidal thought are: denied Homicidal thoughts are: denied Hallucinations: denies auditory, denies visual Cognition: memory grossly intact, language grossly intact Intelligence estimated to be: consistent with level of education Insight: limited Judgement: limited Impression / Recommendations Impression 41 yo male, reports that he took extra Klonopin with ETOH to sleep, no evidence of suicide attempt but family expresses concerns about his depression and filed petition for him to be examined. Additional collaborative history via Psychiatric Liaison Nurse: Jay Hernandez RN Spoke with pt. mother, after being given verbal permission from pt., who states she does not believe her son will commit suicide. States she believes her son will "simply run away" meaning avoid his problems by isolating from family. States her son's girlfriend told her that pt. filled a prescription for 90- 1Mg Klonopin tablets appx: 08/30 and now has none left. Mother states she is not really sure she believes what ptJuanita CLARK has told her because there are inconsistencies in the information she had relayed earlier. Mother not convinced her son has consumed excessive amounts of Klonopin. Recommendations It is my medical opinion that patient is not commitable at this time. As ingestion was by all reports at worse misuse so in that context doesn't meet criteria for inpatient hospitalization and it is reasonable to safety plan and continue with outpatient treatment. The patient initially declined therapy referral but ultimately did sign releases for his outpatient providers. Ideally the location of his Klonopin would be confirmed prior to discharge to ensure secure. If truly out would be at risk for withdrawal. Will defer to judgement of primary team. He doesn't seem particularly invested in outpatient therapy but recognizes that it is our medical advice and that his outpatient prescriber for benzo will be notified of his using other than prescribed.
[2016-09-06 12:04] LABS: HYDROXYETHYLFLURAZEPAM CONF NEGATIVE NG/ML (CUTOFF=50); HYDROXYMIDAZOLAM NEGATIVE NG/ML (CUTOFF=50); HYDROXYTRIAZOLAM CONF NEGATIVE NG/ML (CUTOFF=50); TEMAZEPAM CONF NEGATIVE NG/ML (CUTOFF=50)
== END 2016-09-03 15:45 | disposition home or self-care (01) ==
LOC: EDBD 17:29 → C.EDA 17:38 → ENRESERV 21:17 → CANRESERV 21:17 → EDBEDREQSVC 21:18 → C.4E 21:18 → ENRESERV 21:25 → EDBEDREQ 21:27
PROVIDERS: ADMIT Family Medicine; ATTEND Family Medicine
DX: T42.4X1A Poisoning by benzodiazepines, accidental (unintentional), initial encounter (principal); F17.200 Nicotine dependence, unspecified, uncomplicated; F32.9 Major depressive disorder, single episode, unspecified; F41.9 Anxiety disorder, unspecified